=== PATIENT | female | born 1995 | race Hispanic/Latino ===

== ENCOUNTER 2018-09-21 21:21 | Emergency (ER) | payer SELFPAY ==
[2018-09-21] MEDS ORDERED: DEXAMETHASONE SOD PHOSPHATE 10MG/ML 1ML VIAL ONE (22:57)
[2018-09-21] MEDS ORDERED: KETOROLAC TROMETHAMINE 60 MG/2 ML VIAL ONE (22:57)
== END 2018-09-21 23:39 | disposition home or self-care (01) ==
LOC: EDH 21:21
DX: S76.011A Strain of muscle, fascia and tendon of right hip, initial encounter (principal); G89.29 Other chronic pain; M54.5 Low back pain; J45.909 Unspecified asthma, uncomplicated; Z90.49 Acquired absence of other specified parts of digestive tract; W18.39XA Other fall on same level, initial encounter; Y93.01 Activity, walking, marching and hiking; Y92.89 Other specified places as the place of occurrence of the external cause; Y99.8 Other external cause status
CPT/HCPCS: 73552; 81025; 96372 ×2; 99284; J1100; J1885